=== PATIENT | male | born 1970 | race Caucasian/White ===

== ENCOUNTER → 2020-10-15 | Outpatient (CLI) | payer OTHER ==
[~2020-10-15] MED LIST: CEPH500 PO; HYDACE5 PO; HYDGUAL120 PO; IBUP800 PO; PERM5TC TOP; SULTRIDS PO
[2020-10-16 16:22] LABS: CORONAVIRUS (COVID19) CSH-NRL Negative (Negative)
== END ==
LOC: LAB 10:00
PROVIDERS: Physician Assistant Medical
DX: Z20.828 Contact with and (suspected) exposure to other viral communicable diseases (principal)
CPT/HCPCS: U0003

== ENCOUNTER 2021-05-05 15:06 | Emergency (ER) | payer OTHER ==
[~2021-05-05] VITALS: Ht 182.9 cm; Wt 117.9 kg
[~2021-05-05 15:06] MED LIST changes: -CEPH500 PO
[2021-05-05] MEDS ORDERED: CEPH500 PO (17:42)
== END 2021-05-05 17:55 | disposition home or self-care (01) ==
LOC: ER 15:06
DX: L03.115 Cellulitis of right lower limb (principal)
CPT/HCPCS: 73590; 93971; 99284-25

== ENCOUNTER 2021-10-07 21:28 | Inpatient (IN) | payer OTHER ==
[~2021-10-07] VITALS: Ht 190.5 cm; Wt 127.0 kg
[~2021-10-07 21:28] MED LIST changes: +CEPH500 PO
[2021-10-07 22:26] LABS: BASOPHILS ABSOLUTE AUTO 0.01 K/mm3 (0.00-0.23); BASOPHILS PERCENT AUTO 0 % (0-2); EOSINOPHILS PERCENT AUTO 0 % (0-6); Hematocrit 48.8 % (37.0-53.0); Hemoglobin 17.9 g/dL (13.5-17.5); IMMATURE GRAN ABSOLUTE AUTO 0.01 K/mm3 (0.00-0.10); IMMATURE GRAN PERCENT AUTO 0 % (0-1); LYMPHOCYTES ABSOLUTE AUTO 0.81 K/mm3 (0.84-5.20); LYMPHOCYTES PERCENT AUTO 20 % (21-46); MONOCYTES ABSOLUTE AUTO 0.48 K/mm3 (0.16-1.47); MONOCYTES PERCENT AUTO 12 % (4-13); Mean Corpuscular HGB 32.5 pg (26.0-34.0); Mean Corpuscular HGB Conc 36.7 g/dL (31.5-36.5); Mean Corpuscular Volume 89 fL (80-100); Mean Platelet Volume 11.4 fL (9.1-12.4); NEUTROPHILS ABSOLUTE AUTO 2.68 K/mm3 (1.96-9.15); NEUTROPHILS PERCENT AUTO 67 % (41-73); Platelet Count 62 K/mm3 (150-400); RDW Coefficient Variation 12.2 % (11.7-14.2); RDW Standard Deviation 40.6 fL (35.1-46.3); White Blood Cell Count 3.99 K/mm3 (4.00-11.30)
[2021-10-07 22:46] LABS: Alanine Aminotransfer (ALT/SGP 233 U/L (12-78); Albumin, Blood 3.5 g/dL (3.4-5.0); Albumin/Globulin Ratio 0.9 (0.8-1.8); Alk Phos 114 U/L (50-136); Anion Gap 9 mmol/L (6-16); Aspartate Aminotrans (AST/SGOT 336 U/L (12-37); Bilirubin, Total 1.9 mg/dL (0.1-1.0); Blood Urea Nitrogen 9 mg/dL (8-24); C-REACTIVE PROTEIN, EXT RANGE <0.290 mg/dL (0.000-0.300); CO2, Blood 26 mmol/L (21-32); Calcium, Blood 8.6 mg/dL (8.5-10.1); Chloride, Blood 98 mmol/L (98-108); Creatinine, Blood 0.75 mg/dL (0.60-1.20); Glomerular Filtration Rate >60 (60-); Glucose, Blood 110 mg/dL (70-99); Sodium, Blood 133 mmol/L (136-145); Total Protein, Blood 7.5 g/dL (6.4-8.2); Troponin I <0.015 ng/mL (0.000-0.040)
[2021-10-07 23:02] LABS: Magnesium, Blood 1.8 mg/dL (1.6-2.4)
[2021-10-07 23:29] LABS: Acetaminophen, Random <2.0 ug/mL (10.0-30.0)
[2021-10-08 11:09] LABS: BASOPHILS PERCENT AUTO 0 % (0-2); EOSINOPHILS PERCENT AUTO 0 % (0-6); Hematocrit 47.3 % (37.0-53.0); Hemoglobin 17.6 g/dL (13.5-17.5); Mean Corpuscular HGB 33.1 pg (26.0-34.0); Mean Corpuscular HGB Conc 37.2 g/dL (31.5-36.5); Mean Corpuscular Volume 89 fL (80-100); Mean Platelet Volume 11.4 fL (9.1-12.4); Platelet Count 71 K/mm3 (150-400); RDW Coefficient Variation 12.3 % (11.7-14.2); RDW Standard Deviation 40.2 fL (35.1-46.3); Red Blood Cell Count 5.32 M/mm3 (4.30-5.90); White Blood Cell Count 2.62 K/mm3 (4.00-11.30)
[2021-10-08 11:14] LABS: IMMATURE GRAN ABSOLUTE AUTO 0.01 K/mm3 (0.00-0.10); IMMATURE GRAN PERCENT AUTO 0 % (0-1); LYMPHOCYTES ABSOLUTE AUTO 0.45 K/mm3 (0.84-5.20); LYMPHOCYTES PERCENT AUTO 17 % (21-46); MONOCYTES ABSOLUTE AUTO 0.31 K/mm3 (0.16-1.47); MONOCYTES PERCENT AUTO 12 % (4-13); NEUTROPHILS ABSOLUTE AUTO 1.85 K/mm3 (1.96-9.15); NEUTROPHILS PERCENT AUTO 71 % (41-73)
[2021-10-08 11:28] LABS: Alanine Aminotransfer (ALT/SGP 201 U/L (12-78); Albumin, Blood 3.2 g/dL (3.4-5.0); Albumin/Globulin Ratio 0.8 (0.8-1.8); Alk Phos 109 U/L (50-136); Anion Gap 10 mmol/L (6-16); Aspartate Aminotrans (AST/SGOT 243 U/L (12-37); Bilirubin, Total 1.9 mg/dL (0.1-1.0); Blood Urea Nitrogen 13 mg/dL (8-24); Bun/Creatinine Ratio 18.6 (12.0-20.0); CO2, Blood 25 mmol/L (21-32); Calcium, Blood 8.8 mg/dL (8.5-10.1); Chloride, Blood 100 mmol/L (98-108); Globulin, Blood 4.1 g/dL (2.2-4.0); Glomerular Filtration Rate >60 (60-); Glucose, Blood 138 mg/dL (70-99); Potassium, Blood 3.5 mmol/L (3.5-5.5); Sodium, Blood 135 mmol/L (136-145); Total Protein, Blood 7.3 g/dL (6.4-8.2)
--- NOTE | 2021-10-08 13:51 | NUR ---
ASSUMED CARE OF PATIENT UPON HIS ARRIVAL FROM ED AT 1338. TRANSFERRED FROM [facility] TO BED WITH SBA. ON 8 L/MIN NC O2, BEING SWITCHED OVER TO AIRVO NOW. LUNGS ARE CLEAR, BUT HE IS TEJEDA AND TACHYPNEIC. NO COUGH OBSERVED. A&O X 3, PLEASANT. GIVEN URINAL. EDUCATED NOT TO GET OOB WITHOUT ASSISTANCE D/T SOB; VERBALLY AGREED. DIET CHANGED TO MECH SOFT PT HAS NO TEETH.
--- NOTE | 2021-10-08 17:58 | NUR ---
SHIFT SUMMARY: PT REMAINS ON AIRVO 40 L/MIN 55% FIO2 AND CONTINUOUS OXIMETRY, WHICH SHOWS O2 SAT 90-94% AT REST. TAKES A FEW MINUTES TO RECOVER AFTER ACTIVITY. AMBULATED TO BR WITH ASSIST, BECAME DYSPNEIC AND HAD SOME ANXIETY. NO EVENTS ON TELEMETRY, SR 60'S. CIWA SCORE 3; STATED LAST DRINK WAS SUNDAY 10/07 AT 1600. TOLERATING PO INTAKE.
--- NOTE | 2021-10-09 05:53 | NUR ---
SHIFT SUMMARY PT IS ON AIRVO 4OL @ 55% SATTING 93%. DISCUSSED WITH HIM USING THE BEDSIDE COMMODE TO MAINTAIN SAFETY AND PREVENT THE AIRVO FROM UNPLUGGING. HE AGREED THAT WOULD BE SAFEST AND AGREED TO CALL BEFORE HE GOT UP. RECIEVED SOME TESSALON PEARLS FOR A COUGH AND HAS RESTED COMFORTABLY THE REST OF THE NIGHT. WILL CONTINEU TO MONITOR.
--- NOTE | 2021-10-09 11:52 | NUR ---
Patient is sitting up in bed and alert. Patient tells me about his COVID tracing and the SOB he is experiencing currently. He shares about his struggle with alcoholism and how this hospitalization maybe just what he needs to break that cycle and its hold on him. He speaks of his fears with the virus, his departure from his [employer] and his desires to live healthier. I encourage self-care, reinforce helpful attitudes and practices and provide therapeutic listening, pastoral newspaper delivery counselor and prayer. Patient responds well and shows signs of catharsis and increased peace. I will continue to remain available to patient and family.
--- NOTE | 2021-10-09 17:09 | NUR ---
SHIFT SUMMARY: NO ACUTE EVENTS. AIRVO @ 40 L/MIN/55% FIO2, SATS 88-94% DEPENDING ON ACTIVITY. NO EVENTS ON TELE, SR 70'S. DENIES PAIN. USING BSC AND URINAL. APPETITE IS OK, DOESN'T LIKE TEXTURE OF MECH SOFT/GRD MEAT DIET BUT HAS NO TEETH. CIWA SCORES HAVE BEEN < 8; PT STATED HE HAS BEEN WEANING HIMSELF OF ALCOHOL AT HOME PRIOR TO ADMISSION. STILL HAVING TEJEDA AND ANXIETY, BUT IS ABLE TO BREATHE THROUGH IT.
--- NOTE | 2021-10-10 05:14 | NUR ---
TEE TOLERATED AIRVO AT 40L 50% OVERNIGHT. ONLY TIME HE WOULD DESAT WAS WHEN HE REMOVED TO BLOW NOSE OR ROLLED OVER IN HIS SLEEP AND IT WOULD COME OFF. NOT PANICKY LAST NIGHT HE HAD BEEN THE PREVIOUS DAY WHEN HE WOULD HAVE BRIEF DROPS IN . HE WOULD BREATH THROUGH IT AND GO BACK TO SLEEP. SWEATING PROFUSELY, HIS TELE PATCHES KEPT NEEDING REPLACED. THEN AROUND 0430, HE HAD LOST THE DRESSING OVER HIS IV, AND THE CATHETER CAME OUT WITH IT. PATIENT ASSURED THIS RN THAT HE SWEATS LIKE THIS EVERY NIGHT, AND TO PLEASE LEAVE HIM ALONE SO HE COULD GET SOME SLEEP. TELE: SB-SR 50'S-60'S. 02 SATURATIONS 89-97% ON AIRVO. (WOULD ONLY DROP INTO MID 80'S WHEN OFF BEFORE REPLACEMENT)
[2021-10-10 06:00] LABS: Hematocrit 49.7 % (37.0-53.0); Hemoglobin 17.7 g/dL (13.5-17.5); Mean Corpuscular HGB 32.7 pg (26.0-34.0); Mean Corpuscular HGB Conc 35.6 g/dL (31.5-36.5); Mean Corpuscular Volume 92 fL (80-100); Platelet Count 116 K/mm3 (150-400); RDW Coefficient Variation 12.1 % (11.7-14.2); Red Blood Cell Count 5.42 M/mm3 (4.30-5.90); White Blood Cell Count 11.36 K/mm3 (4.00-11.30)
[2021-10-10 07:07] LABS: Anion Gap 9 mmol/L (6-16); Blood Urea Nitrogen 19 mg/dL (8-24); Bun/Creatinine Ratio 23.9 (12.0-20.0); CO2, Blood 30 mmol/L (21-32); Calcium, Blood 9.2 mg/dL (8.5-10.1); Chloride, Blood 98 mmol/L (98-108); Creatinine, Blood 0.79 mg/dL (0.60-1.20); Glomerular Filtration Rate >60 (60-); Glucose, Blood 119 mg/dL (70-99); Potassium, Blood 3.4 mmol/L (3.5-5.5); Sodium, Blood 137 mmol/L (136-145)
--- NOTE | 2021-10-10 08:32 | NUR ---
pt laying in bed watching tv, he states he's feeling better today, he feels his breathing is ok, a/ox3, cooperative with care, follows commands well, denies pain at this time, reports one episode of coughing with some sputum, otherwise not coughing, lungs are clear in upper [place], dim in bases, adeline left base, possibly an occ faint wheeze, is currently on airvo at 40liters, and 50%, resp even and unlabored at this time, hrr, tele was discontinued this am, was running sr, no edema noted, ppp+2, cap refill<3sec, vs stable, afebrile, btx4, abd flat soft nontender, voids without diff, skin c/w/d, margo recio, call light in reach. he doesn't feel like he is begining etoh w/d yet, but states this is day four, very slight tremor noted, denies any h/a or other symptoms and states he is aware of what to look for and will call if anything changes. call light in reach.
--- NOTE | 2021-10-10 12:47 | NUR ---
NURSE WENT TO REPLACE IV SO HIS DOSE OF REMDESIVER COULD BE GIVEN AT NOON, PT BECAME VERY UPSET AND WAS YELLING AND STATES HE TOLD THEM IN THE ED NOT TO GIVE THAT TO HIM. CHARGE NURSE WENT IN AND SPOKE WITH HIM, HE YELLED AT HER WELL, SHE WAS ABLE TO CALM HIM, AND REMOVED IT FROM THE EMAR. ASKED HIM TO ASK WHEN MEDS ARE BEING GIVEN IF THE NURSE DOESN'T TELL YOU WHAT IT IS, HE'S VERY UPSET HE WAS GIVEN TWO DOSES. CALL LIGHT IN REACH.
--- NOTE | 2021-10-10 18:31 | NUR ---
PT HAS BEEN CALM THE REST OF THE DAY, TOOK A SHOWER WHEN HIS CAME IN. HE TOLERATED IT WELL. SATS HAVE BEEN IN THE MID 90'S ALL DAY, NO FURTHER CHANGES THIS SHIFT. CALL LIGHT IN REACH.
--- NOTE | 2021-10-11 05:52 | NUR ---
BJ DID WELL LAST NIGHT GETTING UP TO BEDSIDE COMMODE HIMSELF, AND WORKING ON RELAXING WHEN HIS BREATHING RATES INCREASE AND HE GETS SOB. HE IS ALERT AND ORIENTED, STILL REFUSING A NEW IV OR ANY FURTHER DOSES OF REMDESVIR.
[2021-10-11 06:16] LABS: Albumin, Blood 2.9 g/dL (3.4-5.0); Anion Gap 10 mmol/L (6-16); Blood Urea Nitrogen 17 mg/dL (8-24); Bun/Creatinine Ratio 23.1 (12.0-20.0); CO2, Blood 22 mmol/L (21-32); Calcium, Blood 8.8 mg/dL (8.5-10.1); Chloride, Blood 104 mmol/L (98-108); Creatinine, Blood 0.74 mg/dL (0.60-1.20); Glomerular Filtration Rate >60 (60-); Glucose, Blood 109 mg/dL (70-99); Magnesium, Blood 2.1 mg/dL (1.6-2.4); Phosphorus, Blood 4.1 mg/dL (2.5-4.9); Potassium, Blood 4.3 mmol/L (3.5-5.5); Sodium, Blood 136 mmol/L (136-145)
--- NOTE | 2021-10-11 17:14 | NUR ---
SHIFT SUMMARY PATIENT ALERT AND ORIENTED THIS SHIFT. PATIENT SITTING UP IN BED WATCHING TELEVISION THROUGHOUT THIS SHIFT. PATIENT REMAINS ON AIRVO 40L @ 50%, O2 IN THE LOW 90s. PATIENT DENIES OTHER NEEDS THROUGHOUT THIS SHIFT. PATIENT'S IN THE ROOM VISITING THROUGHOUT THIS AFTERNOON.
--- NOTE | 2021-10-12 05:48 | NUR ---
SHIFT SUMMARY; AOX3, INDEPENDENT TO BSC/URINAL. LS DIMINISHED BUT CLEAR, OCCATIONALLY THERE ARE SOME CRACKLES BUT HE IS ABLE TO COUGH AND CLEAR. PRODUCTIVE COUGH YELLOW SMALL AMOUNTS. AIR VO 35L / 49% O2. TOLERATING IT WELL. SATS ON CONTINUOUS PULSE OX AVERAGE 90-91%. DENIED ANY NEEDS OR CONCERNS THIS SHIFT. VS WNL, AFEBRILE. NO PAIN. CALL LIGHT IN REACH.
--- NOTE | 2021-10-12 09:00 | NUR ---
pt just got back to bed from the bathroom, he reports he had a bm, he is pretty out of breath, a/ox3, cooperative with care, follows commands well, denies pain, or any needs, lungs are clear t/o, reports he is brining up yellow phlem, currently on airvo, hrr, no edema noted, ppp+2, cap refill<3sec, vs stable, afebrile, btx4, abd flat soft notender, voids clear lebron urine via urinal, skin c/w/d, maew, margo, call light in reach.
--- NOTE | 2021-10-12 18:15 | NUR ---
pt had an uneventful day today, recovers after a few minutes of activity. came to see him, no acute changes or needs. call light in reach.
--- NOTE | 2021-10-13 04:45 | NUR ---
PATIENT IS ALERT AND ORIENTED. INDEPENDENT IN ROOM. REMAINS ON 35L O2 VIA AIRVO. NO COMPLAINTS OF PAIN OR DISCOMFORT. NO ACUTE CHANGES TO REPORT OF AT THIS TIME. CALL LIGHT WITHIN REACH.
--- NOTE | 2021-10-13 09:33 | NUR ---
pt up to br indep, he does remove his 02 to ambulate in the br, states he handles it fine, he states he slept well, no real change, is having a productive cough now, hrr, no edema, no complaints of pain, call light in reach, able to make needs known.
--- NOTE | 2021-10-13 18:22 | NUR ---
in room with pt. he is doing ok, denies complaints. no acute changes this shift. call light in reach.
[2021-10-14 05:05] LABS: Hematocrit 48.7 % (37.0-53.0); Hemoglobin 17.3 g/dL (13.5-17.5); Mean Corpuscular HGB Conc 35.5 g/dL (31.5-36.5); Mean Corpuscular Volume 93 fL (80-100); Mean Platelet Volume 12.2 fL (9.1-12.4); Platelet Count 159 K/mm3 (150-400); RDW Coefficient Variation 12.2 % (11.7-14.2); Red Blood Cell Count 5.25 M/mm3 (4.30-5.90); White Blood Cell Count 13.05 K/mm3 (4.00-11.30)
[2021-10-14 07:02] LABS: Anion Gap 9 mmol/L (6-16); Blood Urea Nitrogen 14 mg/dL (8-24); Bun/Creatinine Ratio 17.1 (12.0-20.0); CO2, Blood 25 mmol/L (21-32); Calcium, Blood 9.1 mg/dL (8.5-10.1); Chloride, Blood 102 mmol/L (98-108); Creatinine, Blood 0.82 mg/dL (0.60-1.20); Glomerular Filtration Rate >60 (60-); Glucose, Blood 108 mg/dL (70-99); Potassium, Blood 4.7 mmol/L (3.5-5.5); Sodium, Blood 136 mmol/L (136-145)
--- NOTE | 2021-10-14 15:15 | NUR ---
Patient discusses how rough it has been going through his DT process and sees having COVID and getting to be in the hospital while recovering is a blessing. 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 I listen empathically and provide anxiety containment and prayer. Patient is clearly moved by the prayer and voices such. I will continue to remain available to assist patient further in the emotional/spiritual aspects of recovery.
--- NOTE | 2021-10-14 16:46 | NUR ---
SHIFT SUMMARY PATIENT IS ALERT AND ORIENTED, PLEASANT AND COOPERATIVE WITH CARE. PATIENT IS ON 35LPM @ 49% ON AIRVOW. PATIENT HAS BEEN SATTING @ 88-92% PATIENT COMPLAINED OF HEART BURN THIS SHIFT. DOCTOR WAS NOTIFIED. NO ACUTE CHANGES THIS SHIFT. THE PATIENT IS IN BED RESTING. USES URINAL AT BEDSIDE. CALL LIGHT WITHIN REACH. THIS NURSE WILL CONTINUE TO MONITOR PATIENT UNTIL SHIFT REPORT IS GIVEN TO ONCOMING NURSE.
--- NOTE | 2021-10-15 05:38 | NUR ---
WASTE TRANSPORTATION TECHNICIAN SUMMARY PATIENT WAS ALERT AND ORIENTED X4, DENIED ANY PAIN BUT STATED HE COUGH UP SO MUCUS. PATIENT IS ON AIRVO 35L 49% SATING BETWEEN 82-92%. PATIENT REFUSED EVENING MEDS (SOFT SOFTENER). PATIENT SLEPT THROUGH THE NIGHT WITHOUT PATRICIA ACUTE CHANGES, VITAL SIGN WHERE STABLE.
--- NOTE | 2021-10-15 12:51 | NUR ---
Patient is sitting on EOB and is struggling to breath until he begins breathing slowly through his nose and out through his mouth. Patient tells me about how frustrated he is with how long his recovery is taking, how trapped he feels being in one rm for so many days and how lonely it is being in isolation. We discuss his concerns over his 's exemption form and the wording she should use. I encourage self-care, and provide therapeutic listening, companionship and prayer. Patient responds well and shows signs of an elevated mood. I will continue to remain available to patient and family.
--- NOTE | 2021-10-15 13:41 | NUR ---
PATIENT CALLED THIS NURSE INTO THE ROOM. PATIENT REQUESTED THAT HIS DIET ORDER BE CHANGED FROM MECHANICAL SOFT TO REGULAR. HE STATES THAT HE WAS PLACED ON A MECHANICAL SOFT DIET BECAUSE OF DIFFICULTY EATING AND WORK OF BREATHING. THIS NURSE CALLED DR. NI WHO ORDERED SPEECH THERAPY EVALUATE PATIENT AND UPGRADE IF APPROPRIATE. THIS NURSE NOTIFIED THE PATIENT AND HE IS EXTREMELY UPSET AND STATED THAT HE'S "STARVING" BECAUSE HE CANNOT EAT "THAT MECHANICAL MEAT." THIS NURSE APOLOGIZED BUT PATIENT CONTINUES TO BE AGGITATED. BED IN LOW POSITION, CALL LIGHT WITHIN REACH.
--- NOTE | 2021-10-15 18:02 | NUR ---
SHIFT SUMMARY PT AXO, IRRITABLE AND AGGITATED THIS SHIFT. IRRTABLE WITH MORNING ASSESSMENT, THOUGH VSS. ON 45L VIA AIRVO AT 60% PER RT. SATING 84- 94%. SEE NOTE ABOUT PATIENT'S REQUEST TO CHANGE DIET ORDER. SPOUSE PRESENT IN ROOM AT THIS TIME. BED IN LOW POSITION, CALL LIGHT WITHIN REACH. PT DESATS WITH ANY EXERTION.
[2021-10-16 05:38] LABS: BASOPHILS ABSOLUTE AUTO 0.03 K/mm3 (0.00-0.23); BASOPHILS PERCENT AUTO 0 % (0-2); EOSINOPHILS ABSOLUTE AUTO 0.15 K/mm3 (0.00-0.68); EOSINOPHILS PERCENT AUTO 1 % (0-6); Hematocrit 50.9 % (37.0-53.0); Hemoglobin 18.2 g/dL (13.5-17.5); IMMATURE GRAN ABSOLUTE AUTO 0.27 K/mm3 (0.00-0.10); IMMATURE GRAN PERCENT AUTO 2 % (0-1); LYMPHOCYTES ABSOLUTE AUTO 0.54 K/mm3 (0.84-5.20); LYMPHOCYTES PERCENT AUTO 4 % (21-46); MONOCYTES ABSOLUTE AUTO 1.23 K/mm3 (0.16-1.47); MONOCYTES PERCENT AUTO 8 % (4-13); Mean Corpuscular HGB Conc 35.8 g/dL (31.5-36.5); Mean Corpuscular Volume 92 fL (80-100); Mean Platelet Volume 11.5 fL (9.1-12.4); NEUTROPHILS ABSOLUTE AUTO 12.39 K/mm3 (1.96-9.15); NEUTROPHILS PERCENT AUTO 85 % (41-73); Platelet Count 233 K/mm3 (150-400); RDW Coefficient Variation 12.2 % (11.7-14.2); Red Blood Cell Count 5.51 M/mm3 (4.30-5.90); White Blood Cell Count 14.61 K/mm3 (4.00-11.30)
[2021-10-16 06:46] LABS: Albumin, Blood 2.8 g/dL (3.4-5.0); Anion Gap 12 mmol/L (6-16); Blood Urea Nitrogen 19 mg/dL (8-24); Bun/Creatinine Ratio 22.1 (12.0-20.0); CO2, Blood 25 mmol/L (21-32); Calcium, Blood 9.5 mg/dL (8.5-10.1); Chloride, Blood 98 mmol/L (98-108); Creatinine, Blood 0.86 mg/dL (0.60-1.20); Glomerular Filtration Rate >60 (60-); Glucose, Blood 94 mg/dL (70-99); Potassium, Blood 5.3 mmol/L (3.5-5.5); Sodium, Blood 135 mmol/L (136-145)
--- NOTE | 2021-10-16 07:13 | NUR ---
no changes overnight for Joshua. He remains on AIRVO at 45L and 50%, and desats quite easily with very minimal exertion. last night, he did refuse his HS medications. (famotidine and joann colace). getting frustrated with his situation, Joshua can be gruff with staff at times
[2021-10-16 13:43] LABS: Albumin, Blood 2.8 g/dL (3.4-5.0); Albumin/Globulin Ratio 0.7 (0.8-1.8); Bilirubin, Direct 0.8 mg/dL (0.0-0.3); Bilirubin, Indirect 0.9 mg/dL (0.1-0.7); Bilirubin, Total 1.7 mg/dL (0.1-1.0); Globulin, Blood 4.2 g/dL (2.2-4.0)
--- NOTE | 2021-10-16 15:03 | NUR ---
Patient talks about how grateful he is for simple things like being able to breath and a good BM. Patient also gets emotional as he talks about some relational tensions. I provide conflict resolution suggestions and prayer. Patient responds well and admits to feeling greater sense of direction and a deeper connection to God. I will continue to remain available to patient and family.
--- NOTE | 2021-10-16 18:53 | NUR ---
PT A/O X4. NO SIGNS OF ACUTE DISTRESS. NO COMPLAINTS OF PAIN. PT ON AIRVO AT 45L. DESAT TO 86-90 % DURING ACTIVITY. PT USES COMMODE. REFUSES PEPCID. PROVIDER NOTIFIED. REPORT GIVEN TO NIGHT NURSE.
--- NOTE | 2021-10-17 05:24 | NUR ---
SHIFT SUMMARY PATIENT ALERT AND ORIENTED. HAD NO COMPLAINTS OF PAIN OR SHORTNESS OF BREATH. NO ACUTE ISSUES NOTED OVERNIGHT. CONTINUES ON AIRVO MONITORED BY RT. CALL LIGHT WITHIN REACH. REPORT GIVEN TO ONCOMING RN.
[2021-10-17 06:25] LABS: Albumin, Blood 2.5 g/dL (3.4-5.0); Anion Gap 9 mmol/L (6-16); Blood Urea Nitrogen 21 mg/dL (8-24); Bun/Creatinine Ratio 31.1 (12.0-20.0); CO2, Blood 24 mmol/L (21-32); Calcium, Blood 9.1 mg/dL (8.5-10.1); Chloride, Blood 98 mmol/L (98-108); Creatinine, Blood 0.68 mg/dL (0.60-1.20); Glomerular Filtration Rate >60 (60-); Glucose, Blood 124 mg/dL (70-99); Potassium, Blood 4.5 mmol/L (3.5-5.5); Sodium, Blood 131 mmol/L (136-145)
[2021-10-17 06:55] LABS: BASOPHILS ABSOLUTE AUTO 0.03 K/mm3 (0.00-0.23); BASOPHILS PERCENT AUTO 0 % (0-2); EOSINOPHILS ABSOLUTE AUTO 0.06 K/mm3 (0.00-0.68); EOSINOPHILS PERCENT AUTO 0 % (0-6); Hematocrit 47.6 % (37.0-53.0); Hemoglobin 17.2 g/dL (13.5-17.5); IMMATURE GRAN ABSOLUTE AUTO 0.28 K/mm3 (0.00-0.10); IMMATURE GRAN PERCENT AUTO 2 % (0-1); LYMPHOCYTES ABSOLUTE AUTO 0.74 K/mm3 (0.84-5.20); LYMPHOCYTES PERCENT AUTO 5 % (21-46); MONOCYTES ABSOLUTE AUTO 1.02 K/mm3 (0.16-1.47); MONOCYTES PERCENT AUTO 6 % (4-13); Mean Corpuscular HGB 33.1 pg (26.0-34.0); Mean Corpuscular HGB Conc 36.1 g/dL (31.5-36.5); Mean Corpuscular Volume 92 fL (80-100); Mean Platelet Volume 11.9 fL (9.1-12.4); NEUTROPHILS ABSOLUTE AUTO 14.06 K/mm3 (1.96-9.15); NEUTROPHILS PERCENT AUTO 87 % (41-73); Platelet Count 237 K/mm3 (150-400); RDW Coefficient Variation 12.1 % (11.7-14.2); RDW Standard Deviation 41.1 fL (35.1-46.3); White Blood Cell Count 16.19 K/mm3 (4.00-11.30)
--- NOTE | 2021-10-17 08:00 | NUR ---
pt sitting up in a chair working on breakfast, sats are in the low 90's but desats with any movement on airvo, he is a/ox3, pleasant and cooperative with care, follows commands well, denies pain, lungs are pretty clear t/o except to rul is dim, has a productive cough of yellow sputum, hrr, no edema noted, ppp+2, cap refill <3sec, vs stable, afebrile, btx4, abd flat soft nontender, voids without diff, skin c/w/d, maew, margo, call light in reach.
--- NOTE | 2021-10-18 05:01 | NUR ---
PT WAS A/O X4, STABLE VITALS, NO ACUTE CHANGES DURING THE SHIFT, PT COMPAINED OF STRAINING WHEN HAVING A BOWEL MOVEMENT AND REQUESTED HIS SCHEDULED STOOL SOFTNERS. PT IS AWARE OF NEW DIAGNOSIS OF MOLD SPORES IN LUNGS AND IS RCEIVING VFEND TREATMENT. EF30-35%, AIRVO 45L 49%.
[2021-10-18 05:10] LABS: BASOPHILS ABSOLUTE AUTO 0.02 K/mm3 (0.00-0.23); BASOPHILS PERCENT AUTO 0 % (0-2); EOSINOPHILS ABSOLUTE AUTO 0.01 K/mm3 (0.00-0.68); EOSINOPHILS PERCENT AUTO 0 % (0-6); Hemoglobin 16.8 g/dL (13.5-17.5); IMMATURE GRAN PERCENT AUTO 1 % (0-1); LYMPHOCYTES ABSOLUTE AUTO 0.81 K/mm3 (0.84-5.20); LYMPHOCYTES PERCENT AUTO 4 % (21-46); MONOCYTES ABSOLUTE AUTO 1.07 K/mm3 (0.16-1.47); MONOCYTES PERCENT AUTO 5 % (4-13); Mean Corpuscular HGB 33.3 pg (26.0-34.0); Mean Corpuscular HGB Conc 36.5 g/dL (31.5-36.5); Mean Corpuscular Volume 91 fL (80-100); Mean Platelet Volume 11.1 fL (9.1-12.4); NEUTROPHILS ABSOLUTE AUTO 18.34 K/mm3 (1.96-9.15); NEUTROPHILS PERCENT AUTO 90 % (41-73); Platelet Count 264 K/mm3 (150-400); RDW Coefficient Variation 12.1 % (11.7-14.2); RDW Standard Deviation 40.6 fL (35.1-46.3); Red Blood Cell Count 5.04 M/mm3 (4.30-5.90); White Blood Cell Count 20.45 K/mm3 (4.00-11.30)
[2021-10-18 05:53] LABS: Alanine Aminotransfer (ALT/SGP 124 U/L (12-78); Albumin, Blood 2.5 g/dL (3.4-5.0); Albumin/Globulin Ratio 0.7 (0.8-1.8); Alk Phos 126 U/L (50-136); Anion Gap 10 mmol/L (6-16); Aspartate Aminotrans (AST/SGOT 66 U/L (12-37); Bilirubin, Direct 0.6 mg/dL (0.0-0.3); Bilirubin, Indirect 0.8 mg/dL (0.1-0.7); Bilirubin, Total 1.4 mg/dL (0.1-1.0); Blood Urea Nitrogen 19 mg/dL (8-24); CO2, Blood 24 mmol/L (21-32); Calcium, Blood 8.7 mg/dL (8.5-10.1); Chloride, Blood 99 mmol/L (98-108); Globulin, Blood 3.7 g/dL (2.2-4.0); Glomerular Filtration Rate >60 (60-); Glucose, Blood 134 mg/dL (70-99); Phosphorus, Blood 3.8 mg/dL (2.5-4.9); Potassium, Blood 4.9 mmol/L (3.5-5.5); Sodium, Blood 133 mmol/L (136-145); Total Protein, Blood 6.2 g/dL (6.4-8.2)
--- NOTE | 2021-10-18 17:07 | NUR ---
SHIFT SUMMARY PATIENT IS ALERT AND ORIENTATED X4. PATIENT HAS BEEN ON AIRVO 35L 49 FIO2 ALL SHIFT. PATIENT DESATS WITH ACTIVITY. PATIENT HAS COMPLAINED OF CONSTIPATION. MEDICATION ORDERS FOR CONSTIPATION WERE OBTAINED FROM PATIENT HAS HAD NO COMPLAINTS OF PAIN, NAUSEA, VOMITTING, OR SOB. PATIENT HAS RESTED IN CHAIR MOST OF SHIFT. VISITED DURING VISITING HRS. VITAL SIGNS REVIEWED. NO ACUTE EVENTS THIS SHIFT. WILL MONITOR UNTIL SHIFT CHANGE.
[2021-10-19 05:13] LABS: BASOPHILS ABSOLUTE AUTO 0.05 K/mm3 (0.00-0.23); BASOPHILS PERCENT AUTO 0 % (0-2); EOSINOPHILS PERCENT AUTO 0 % (0-6); Hematocrit 48.7 % (37.0-53.0); Hemoglobin 17.6 g/dL (13.5-17.5); IMMATURE GRAN ABSOLUTE AUTO 0.26 K/mm3 (0.00-0.10); IMMATURE GRAN PERCENT AUTO 1 % (0-1); LYMPHOCYTES ABSOLUTE AUTO 0.98 K/mm3 (0.84-5.20); LYMPHOCYTES PERCENT AUTO 4 % (21-46); MONOCYTES ABSOLUTE AUTO 1.09 K/mm3 (0.16-1.47); MONOCYTES PERCENT AUTO 5 % (4-13); Mean Corpuscular HGB 33.5 pg (26.0-34.0); Mean Corpuscular HGB Conc 36.1 g/dL (31.5-36.5); Mean Corpuscular Volume 93 fL (80-100); Mean Platelet Volume 11.1 fL (9.1-12.4); NEUTROPHILS PERCENT AUTO 90 % (41-73); Platelet Count 268 K/mm3 (150-400); RDW Coefficient Variation 12.2 % (11.7-14.2); RDW Standard Deviation 41.6 fL (35.1-46.3); Red Blood Cell Count 5.25 M/mm3 (4.30-5.90); White Blood Cell Count 23.48 K/mm3 (4.00-11.30)
[2021-10-19 06:08] LABS: Alanine Aminotransfer (ALT/SGP 143 U/L (12-78); Albumin, Blood 2.8 g/dL (3.4-5.0); Albumin/Globulin Ratio 0.7 (0.8-1.8); Alk Phos 144 U/L (50-136); Anion Gap 9 mmol/L (6-16); Aspartate Aminotrans (AST/SGOT 70 U/L (12-37); Bilirubin, Total 1.3 mg/dL (0.1-1.0); Blood Urea Nitrogen 18 mg/dL (8-24); Bun/Creatinine Ratio 22.9 (12.0-20.0); CO2, Blood 29 mmol/L (21-32); Chloride, Blood 97 mmol/L (98-108); Creatinine, Blood 0.79 mg/dL (0.60-1.20); Glomerular Filtration Rate >60 (60-); Glucose, Blood 136 mg/dL (70-99); Potassium, Blood 5.1 mmol/L (3.5-5.5); Sodium, Blood 135 mmol/L (136-145); Total Protein, Blood 6.8 g/dL (6.4-8.2)
--- NOTE | 2021-10-19 06:24 | NUR ---
SHIFT SUMMARY PT IS A 50 Y/O MALE, ADMITTED FOR PNA R/T COVID-19. HE IS A&O X 4, INDEPENDENT IN THE ROOM, CURRENTLY ON ENHANCED PRECAUTIONS. PT IS CURRENTLY ON AIRVO AT 35L @ 40% FIO2. PT DESATS DOWN TO THE 70S WITH ANY EXERTION OR COUGHING SPELLS. VITAL SIGNS OTHERWISE STABLE. NO C/O ACUTE PAIN OR NAUSEA. NO OTHER ACUTE CHANGES IN PT CONDITION NOTED DURING THE NIGHT. WILL CONTINUE TO MONITOR AND TREAT PER EMAR UNTIL HAND OFF TO DAY SHIFT RN.
--- NOTE | 2021-10-19 19:24 | NUR ---
PT A/O X4. PT AMBULATES WELL IN ROOM. NO CHANGES NOTED FOR SHIFT. PT IS ON AIRVO, DESAT 89-96% WITH ACTIVITY. REOPORT GIVEN TO [facility] SHIFT
[2021-10-20 04:43] LABS: BASOPHILS ABSOLUTE AUTO 0.05 K/mm3 (0.00-0.23); BASOPHILS PERCENT AUTO 0 % (0-2); EOSINOPHILS PERCENT AUTO 0 % (0-6); Hematocrit 45.6 % (37.0-53.0); Hemoglobin 16.3 g/dL (13.5-17.5); IMMATURE GRAN ABSOLUTE AUTO 0.27 K/mm3 (0.00-0.10); IMMATURE GRAN PERCENT AUTO 1 % (0-1); LYMPHOCYTES ABSOLUTE AUTO 1.06 K/mm3 (0.84-5.20); LYMPHOCYTES PERCENT AUTO 4 % (21-46); MONOCYTES ABSOLUTE AUTO 1.16 K/mm3 (0.16-1.47); MONOCYTES PERCENT AUTO 5 % (4-13); Mean Corpuscular HGB 33.3 pg (26.0-34.0); Mean Corpuscular HGB Conc 35.7 g/dL (31.5-36.5); Mean Corpuscular Volume 93 fL (80-100); NEUTROPHILS ABSOLUTE AUTO 22.77 K/mm3 (1.96-9.15); NEUTROPHILS PERCENT AUTO 90 % (41-73); Platelet Count 261 K/mm3 (150-400); RDW Coefficient Variation 12.1 % (11.7-14.2); RDW Standard Deviation 41.8 fL (35.1-46.3); Red Blood Cell Count 4.89 M/mm3 (4.30-5.90); White Blood Cell Count 25.31 K/mm3 (4.00-11.30)
[2021-10-20 05:06] LABS: Alanine Aminotransfer (ALT/SGP 146 U/L (12-78); Albumin, Blood 2.5 g/dL (3.4-5.0); Albumin/Globulin Ratio 0.7 (0.8-1.8); Alk Phos 143 U/L (50-136); Anion Gap 7 mmol/L (6-16); Aspartate Aminotrans (AST/SGOT 73 U/L (12-37); Bilirubin, Direct 0.5 mg/dL (0.0-0.3); Bilirubin, Indirect 0.3 mg/dL (0.1-0.7); Bilirubin, Total 0.8 mg/dL (0.1-1.0); Blood Urea Nitrogen 17 mg/dL (8-24); Bun/Creatinine Ratio 24.3 (12.0-20.0); CO2, Blood 29 mmol/L (21-32); Calcium, Blood 8.5 mg/dL (8.5-10.1); Chloride, Blood 97 mmol/L (98-108); Globulin, Blood 3.7 g/dL (2.2-4.0); Glomerular Filtration Rate >60 (60-); Glucose, Blood 170 mg/dL (70-99); Phosphorus, Blood 2.4 mg/dL (2.5-4.9); Potassium, Blood 4.8 mmol/L (3.5-5.5); Sodium, Blood 133 mmol/L (136-145); Total Protein, Blood 6.2 g/dL (6.4-8.2)
--- NOTE | 2021-10-20 05:59 | NUR ---
pATIENT IS A&O X4. HE AMBULATES INDEPENDENTLY. PATIENT IS ON AIRVO @45% SATTING 84-98%. PATIENT EASILY DESATS WITH ACTIVITY,
--- NOTE | 2021-10-20 18:54 | NUR ---
SHIFT SUMMARY PT AAOX4, ABLE TO MAKE NEEDS KNOWN, PLEASANT AND COOPERATIVE TO CARE. NO C/O PAIN OR ANY DISCOMFORT THIS SHIFT. DENIES CP OR N/V/D. PT REMAINS ON AIRVO AT 45% SATTING 96% AT REST. PT NOTED TO DESAT WITH ACTIVITY TO 82%. CALLS APPROPRIATELY FOR ASSISTANCE. BED AT LOWEST POSITION. CALL LIGHT WITHIN REACH.
--- NOTE | 2021-10-21 05:15 | NUR ---
PATIENT HAS BEEN INDEPENDENT IN HIS ROOM. A&o X4. PATIENT STILL DESATS WITH ACTIVITY. SATS RANGED FROM 86-94%. VERABLIZED NO QUESTIONS OR COMMENTS. PATIENTS O2 NEED WILL NEED WILL HAVE TO DECREASE IN ORDER TO DC.
[2021-10-21 05:20] LABS: BASOPHILS ABSOLUTE AUTO 0.04 K/mm3 (0.00-0.23); BASOPHILS PERCENT AUTO 0 % (0-2); EOSINOPHILS PERCENT AUTO 0 % (0-6); Hematocrit 45.4 % (37.0-53.0); Hemoglobin 16.1 g/dL (13.5-17.5); IMMATURE GRAN ABSOLUTE AUTO 0.22 K/mm3 (0.00-0.10); IMMATURE GRAN PERCENT AUTO 1 % (0-1); LYMPHOCYTES ABSOLUTE AUTO 0.65 K/mm3 (0.84-5.20); LYMPHOCYTES PERCENT AUTO 3 % (21-46); MONOCYTES ABSOLUTE AUTO 0.93 K/mm3 (0.16-1.47); MONOCYTES PERCENT AUTO 4 % (4-13); Mean Corpuscular HGB Conc 35.5 g/dL (31.5-36.5); Mean Corpuscular Volume 93 fL (80-100); Mean Platelet Volume 10.6 fL (9.1-12.4); NEUTROPHILS ABSOLUTE AUTO 20.43 K/mm3 (1.96-9.15); NEUTROPHILS PERCENT AUTO 92 % (41-73); Platelet Count 222 K/mm3 (150-400); RDW Coefficient Variation 12.1 % (11.7-14.2); RDW Standard Deviation 41.9 fL (35.1-46.3); Red Blood Cell Count 4.88 M/mm3 (4.30-5.90); White Blood Cell Count 22.27 K/mm3 (4.00-11.30)
[2021-10-21 05:57] LABS: Albumin, Blood 2.4 g/dL (3.4-5.0); Anion Gap 7 mmol/L (6-16); Blood Urea Nitrogen 17 mg/dL (8-24); Bun/Creatinine Ratio 22.1 (12.0-20.0); CO2, Blood 29 mmol/L (21-32); Chloride, Blood 99 mmol/L (98-108); Creatinine, Blood 0.77 mg/dL (0.60-1.20); Glomerular Filtration Rate >60 (60-); Glucose, Blood 156 mg/dL (70-99); Phosphorus, Blood 2.6 mg/dL (2.5-4.9); Sodium, Blood 135 mmol/L (136-145)
--- NOTE | 2021-10-21 17:50 | NUR ---
SHIFT SUMMARY NO ACUTE CHANGES NOTED TO PT THIS SHIFT. PT AAOX4, ABLE TO MAKE NEEDS KNOWN, PLEASANT AND COOPERATIVE TO CARE. NO C/O PAIN THIS SHIFT. PT ON AIRVO AT 45L AND 60% FIO2, PT SATTING AT 95-97% AT REST, PT DESATS WITH MINIMAL ACTIVITY DOWN TO 85%. BED AT LOWEST POSITION. CALL LIGHT WITHIN REACH.
--- NOTE | 2021-10-21 22:17 | NUR ---
Joshua's temp improved to 98.3 at 2200
[2021-10-22 05:39] LABS: BASOPHILS ABSOLUTE AUTO 0.03 K/mm3 (0.00-0.23); BASOPHILS PERCENT AUTO 0 % (0-2); EOSINOPHILS PERCENT AUTO 0 % (0-6); Hematocrit 43.9 % (37.0-53.0); Hemoglobin 15.5 g/dL (13.5-17.5); IMMATURE GRAN ABSOLUTE AUTO 0.29 K/mm3 (0.00-0.10); IMMATURE GRAN PERCENT AUTO 1 % (0-1); LYMPHOCYTES PERCENT AUTO 3 % (21-46); MONOCYTES ABSOLUTE AUTO 1.29 K/mm3 (0.16-1.47); MONOCYTES PERCENT AUTO 6 % (4-13); Mean Corpuscular HGB 32.6 pg (26.0-34.0); Mean Corpuscular HGB Conc 35.3 g/dL (31.5-36.5); Mean Corpuscular Volume 92 fL (80-100); Mean Platelet Volume 10.9 fL (9.1-12.4); NEUTROPHILS ABSOLUTE AUTO 18.29 K/mm3 (1.96-9.15); NEUTROPHILS PERCENT AUTO 89 % (41-73); Platelet Count 209 K/mm3 (150-400); RDW Coefficient Variation 12.2 % (11.7-14.2); RDW Standard Deviation 41.1 fL (35.1-46.3); Red Blood Cell Count 4.76 M/mm3 (4.30-5.90)
--- NOTE | 2021-10-22 17:03 | NUR ---
SHIFT SUMMARY NO ACUTE CHANGES NOTED TO PT THIS SHIFT. PT AAOX4, ABLE TO MAKE NEEDS KNOWN, PLEASANT AND COOPERATIVE TO CARE. NO C/O PAIN OR ANY DISCOMFORT THIS SHIFT. NO C/O CP OR N/V/D. PT REMAINS ON AIRVO AT 45L O2 AND 60% FIO2 PER RT. PT SATTING 95% AT REST, NOTED TO DESAT DOWN TO 84% WITH MINIMAL ACTIVITY. PT IS INDEPENDENT IN THE ROOM AND CALLS APPROPRIATELY FOR ASSISTANCE. CALL LIGHT WITHIN REACH.
--- NOTE | 2021-10-23 04:45 | NUR ---
TEE IS STILL ON 45/60 HFNC SPO2 IN THE 90'S AT REST. IN THE LOW 80'S WITH EXERTION. VITALS REMAINS STABLE NO MAJOR CHANGES
[2021-10-23 05:02] LABS: BASOPHILS ABSOLUTE AUTO 0.05 K/mm3 (0.00-0.23); BASOPHILS PERCENT AUTO 0 % (0-2); EOSINOPHILS ABSOLUTE AUTO 0.01 K/mm3 (0.00-0.68); EOSINOPHILS PERCENT AUTO 0 % (0-6); Hematocrit 44.6 % (37.0-53.0); Hemoglobin 15.8 g/dL (13.5-17.5); IMMATURE GRAN ABSOLUTE AUTO 0.41 K/mm3 (0.00-0.10); IMMATURE GRAN PERCENT AUTO 2 % (0-1); LYMPHOCYTES ABSOLUTE AUTO 0.57 K/mm3 (0.84-5.20); LYMPHOCYTES PERCENT AUTO 3 % (21-46); MONOCYTES ABSOLUTE AUTO 0.85 K/mm3 (0.16-1.47); MONOCYTES PERCENT AUTO 5 % (4-13); Mean Corpuscular HGB Conc 35.4 g/dL (31.5-36.5); Mean Corpuscular Volume 93 fL (80-100); Mean Platelet Volume 10.8 fL (9.1-12.4); NEUTROPHILS ABSOLUTE AUTO 17.19 K/mm3 (1.96-9.15); NEUTROPHILS PERCENT AUTO 90 % (41-73); Platelet Count 196 K/mm3 (150-400); RDW Coefficient Variation 12.1 % (11.7-14.2); RDW Standard Deviation 42.2 fL (35.1-46.3); Red Blood Cell Count 4.79 M/mm3 (4.30-5.90); White Blood Cell Count 19.08 K/mm3 (4.00-11.30)
[2021-10-23 06:36] LABS: Albumin, Blood 2.4 g/dL (3.4-5.0); Anion Gap 9 mmol/L (6-16); Blood Urea Nitrogen 16 mg/dL (8-24); Bun/Creatinine Ratio 21.4 (12.0-20.0); CO2, Blood 27 mmol/L (21-32); Calcium, Blood 8.4 mg/dL (8.5-10.1); Chloride, Blood 99 mmol/L (98-108); Creatinine, Blood 0.75 mg/dL (0.60-1.20); Glomerular Filtration Rate >60 (60-); Glucose, Blood 207 mg/dL (70-99); Phosphorus, Blood 2.5 mg/dL (2.5-4.9); Potassium, Blood 4.5 mmol/L (3.5-5.5); Sodium, Blood 135 mmol/L (136-145)
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
--- NOTE | 2021-10-23 17:16 | NUR ---
SHIFT SUMMARY PT AAOX4, ABLE TO MAKE NEEDS KNOWN, PLEASANT AND COOPERATIVE TO CARE. NO C/O PAIN OR ANY DISCOMFORT THIS SHIFT. DENIES CP OR N/V/D. PT REMAINS ON AIRVO AT 40L AND 60 FIO2 PER RT, SATTING 93-95% AT REST, CONTINUES TO DESAT WITH MINIMAL EXERTION. NO ACUTE CHANGES NOTED TO PT THIS SHIFT. BED AT LOWEST POSITION. CALL LIGHT WITHIN REACH.
--- NOTE | 2021-10-23 20:49 | NUR ---
ASSUMED CARE. AOX3, COMPLIANT W/ CARE. INDEPENDENT IN ROOM FOR SHORT DISTANCE AND SHORT PERIODS OF TIME. DYSPENIC W/ EXERTION. MILD ACTIVITY INTOLERANCE. AVERAGE SATS 91-92%. WITH ACTIVITY CAN DESAT TO LOW 80'S. RECOVERY IS USUALLY WITH IN A MINUTE. OCCATIONALLY WILL NEED ADDITIONAL 15L NR. LS CLEAR WITH MODERATE AIR EXCHANGE. ENCOURAGE DEEP BREATHING EXERCISES. VS WNL. WILL CONTINUE TO MONITOR. CALL LIGHT IN REACH.
[2021-10-24 05:19] LABS: BASOPHILS ABSOLUTE AUTO 0.04 K/mm3 (0.00-0.23); BASOPHILS PERCENT AUTO 0 % (0-2); EOSINOPHILS ABSOLUTE AUTO 0.01 K/mm3 (0.00-0.68); EOSINOPHILS PERCENT AUTO 0 % (0-6); Hematocrit 44.9 % (37.0-53.0); IMMATURE GRAN ABSOLUTE AUTO 0.36 K/mm3 (0.00-0.10); IMMATURE GRAN PERCENT AUTO 2 % (0-1); LYMPHOCYTES ABSOLUTE AUTO 0.54 K/mm3 (0.84-5.20); LYMPHOCYTES PERCENT AUTO 3 % (21-46); MONOCYTES ABSOLUTE AUTO 0.78 K/mm3 (0.16-1.47); MONOCYTES PERCENT AUTO 4 % (4-13); Mean Corpuscular HGB 33.2 pg (26.0-34.0); Mean Corpuscular HGB Conc 35.6 g/dL (31.5-36.5); Mean Corpuscular Volume 93 fL (80-100); Mean Platelet Volume 10.7 fL (9.1-12.4); NEUTROPHILS ABSOLUTE AUTO 17.41 K/mm3 (1.96-9.15); NEUTROPHILS PERCENT AUTO 91 % (41-73); Platelet Count 190 K/mm3 (150-400); RDW Coefficient Variation 12.1 % (11.7-14.2); RDW Standard Deviation 42.1 fL (35.1-46.3); Red Blood Cell Count 4.82 M/mm3 (4.30-5.90); White Blood Cell Count 19.14 K/mm3 (4.00-11.30)
--- NOTE | 2021-10-24 05:46 | NUR ---
SHIFT SUMMARY: VS WNL, AFEBRILE. AIRVO CONTINUES ON 45L 60% FIO2. CONTINUES TO BE DYSPENIC WITH EXERTION. WITH SHORT DISTANCE OR ACTIVITY RECOVERY IS LESS THEN A MIN. ANYTHING LONG HE REQUIRES ADDITIONAL 15L NR FOR HIM TO RECOVER IN LESS THAN 5 MINUTES. LS ARE CLEAR BUT WITH MODERATE AIR MOVEMENT. DISCUSSED IN LENGTH DISEASE PROCESS, EXERCISES. ABLE TO BE INDEPENDENT FOR THE MOST PART. ABLE TO MAKE NEEDS KNOWN. CALL LIGHT REMAINS IN REACH.
--- NOTE | 2021-10-24 18:10 | NUR ---
PT IS A/OX3, PLEASANT AND COOPERATIVE. THE PT IS UP IND IN HIS ROOM. THE PT IS ON AIR-VO 40/55 TODAY MAINTANING O2 SAT'S IN THE HIGH 90%'S AT REST. THE PT DESAT'S WITH MINIMAL ACTIVITY INTO THE LOW 80%'S, HOWEVER, RECOVERS FAIRLY QIUCKLY. THE PT DENIED ANY PAIN T/O THE SHIFT. CALL LIGHT IN REACH WILL CONTINUE TO MONITOR AND ASSESS FOR CHANGES
--- NOTE | 2021-10-25 04:54 | NUR ---
PT A/O X4; PLEASANT AND COOPERATIVE WITH CARE. HE IS IND IN THE ROOM. CURRENTLY ON VIA AIRVO. SATS IN THE 90'S AT REST AND WILL DESAT INTO THE LOW 80'S WITH ACTIVITY. PT REPORTS DYSPNEA AND HAVING ISSUES "TAKING IN A FULL BREATHE". VSS. WILL REPORT TO DAY SHIFT RN.
[2021-10-25 05:09] LABS: HIV AB/P24 AG SCREEN Non Reactive (Non Reactive)
[2021-10-25 05:15] LABS: BASOPHILS ABSOLUTE AUTO 0.05 K/mm3 (0.00-0.23); BASOPHILS PERCENT AUTO 0 % (0-2); EOSINOPHILS ABSOLUTE AUTO 0.02 K/mm3 (0.00-0.68); EOSINOPHILS PERCENT AUTO 0 % (0-6); Hematocrit 44.5 % (37.0-53.0); Hemoglobin 15.9 g/dL (13.5-17.5); IMMATURE GRAN PERCENT AUTO 2 % (0-1); LYMPHOCYTES PERCENT AUTO 3 % (21-46); MONOCYTES ABSOLUTE AUTO 0.71 K/mm3 (0.16-1.47); MONOCYTES PERCENT AUTO 4 % (4-13); Mean Corpuscular HGB 32.9 pg (26.0-34.0); Mean Corpuscular HGB Conc 35.7 g/dL (31.5-36.5); Mean Corpuscular Volume 92 fL (80-100); Mean Platelet Volume 10.7 fL (9.1-12.4); NEUTROPHILS ABSOLUTE AUTO 16.55 K/mm3 (1.96-9.15); NEUTROPHILS PERCENT AUTO 90 % (41-73); Platelet Count 176 K/mm3 (150-400); RDW Coefficient Variation 12.1 % (11.7-14.2); RDW Standard Deviation 41.5 fL (35.1-46.3); Red Blood Cell Count 4.84 M/mm3 (4.30-5.90); White Blood Cell Count 18.33 K/mm3 (4.00-11.30)
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
--- NOTE | 2021-10-25 17:24 | NUR ---
SHIFT SUMMARY: PT A/O IND IN ROOM TO BSC. PT WAS TITRATED BY RT TO AIRVO 45/56. SATS ARE 96%. PT HAD NO ACUTE CHANGES THIS SHIFT. HE IS PLEASANT AND COOPERATIVE. HAD 2 LARGE BM'S. NO CONCERNS AT THIS TIME. MELATONIN ORDERED FOR HIS C/O INSOMNIA LAST NIGHT.
--- NOTE | 2021-10-26 04:35 | NUR ---
SHIFT SUMMARY PT A/O X4 AND IND IN THE ROOM. PT CURRENTLY ON AIRVO AT 45/45. PT HAS BEEN SATTING IN THE LOW TO MID 90'S. PT DESATS WITH ACTIVITY. MELATONIN GIVEN TO HELP WITH SLEEP SINCE HE HAS NOT BEEN SLEEPING WELL SINCE BEING IN THE HOSPITAL. VSS. WILL REPORT TO DAY RN.
--- NOTE | 2021-10-26 16:17 | NUR ---
SHIFT SUMMARY PT IS A&O, SITTING IN CHAIR AT BS MOST OF SHIFT, WATCHING TV. USES URINAL AND UP TO BSC INDEPENDENTLY. PT REMAINED ON AIRVO WITH SETTING UNCHANGED, PER RT; BIOX REMAINED >96% ALL DAY. LUNGS T/O ONLY SLIGHTLY COARSE IN THE BASES. DR SORTO IN TO SEE PT TODAY. COUGH SYRUP ORDERED PER PT REQUEST. TOOK A NAP AFTER LUNCH. DENIED FURTHER NEEDS. CALL LT IN REACH.
--- NOTE | 2021-10-27 05:58 | NUR ---
SHIFT SUMMARY PATIENT ALERT AND ORIENTED. HAD NO COMPLAINTS OF PAIN. GETS SHORT OF BREATH UPON EXERTION. PATIENT CONTINUES ON AIRVO MONITORED BY RT. NO ACUTE ISSUES NOTED OVERNIGHT. CALL LIGHT WITHIN REACH. REPORT GIVEN TO ONCOMING RN.
--- NOTE | 2021-10-27 17:16 | NUR ---
SHIFT SUMMARY PT UP TO CHAIR AT START OF SHIFT. REMAINS IN CHAIR AT BS ALL DAY, MOSTLY WATCHING TV. IRRITABLE WITH SOME STAFF AND RT AT START OF SHIFT, AFTER TALKING WITH HIS . PT LATER APPOLOGIZED. REPORTED THAT HIS WOULD NOT BE COMING IN TODAY. PT STATED THAT HE HAD WANTED TO TAKE A SHOWER TODAY AND THAT HIS USUALLY HELPS HIM, BUT SHE WOULDN'T BE COMING TODAY. BED LINENS CHANGED. BIOX CONTINUES TO IMPROVE; STAYING BETWEEN 96-99%. RT NOTIFIED, BUT PT BEING IRRITABLE AND REFUSING THIS AM. DR SORTO NOTIFIED. PT INFORMED OF PROCESS AND TRYING TO GET HIM WELL AND D/C'D HOME. PT THEN AGREED. AIRVO DECREASED AND PT'S BIOX HAS REMAINED >95%. PT IS INDEPENDENT TO BSC FOR BM'S. USES URINALS INDEPENDENTLY. NO C/O PAIN. DENIES FURTHER NEEDS. CALL LT IN REACH. REACH.
[2021-10-28 05:11] LABS: BASOPHILS ABSOLUTE AUTO 0.09 K/mm3 (0.00-0.23); BASOPHILS PERCENT AUTO 0 % (0-2); EOSINOPHILS ABSOLUTE AUTO 0.03 K/mm3 (0.00-0.68); EOSINOPHILS PERCENT AUTO 0 % (0-6); Hematocrit 48.3 % (37.0-53.0); Hemoglobin 17.1 g/dL (13.5-17.5); IMMATURE GRAN ABSOLUTE AUTO 0.78 K/mm3 (0.00-0.10); IMMATURE GRAN PERCENT AUTO 4 % (0-1); LYMPHOCYTES ABSOLUTE AUTO 0.89 K/mm3 (0.84-5.20); LYMPHOCYTES PERCENT AUTO 4 % (21-46); MONOCYTES ABSOLUTE AUTO 1.16 K/mm3 (0.16-1.47); MONOCYTES PERCENT AUTO 6 % (4-13); Mean Corpuscular HGB 32.9 pg (26.0-34.0); Mean Corpuscular HGB Conc 35.4 g/dL (31.5-36.5); Mean Corpuscular Volume 93 fL (80-100); Mean Platelet Volume 10.6 fL (9.1-12.4); NEUTROPHILS ABSOLUTE AUTO 17.28 K/mm3 (1.96-9.15); NEUTROPHILS PERCENT AUTO 86 % (41-73); Platelet Count 146 K/mm3 (150-400); RDW Coefficient Variation 12.1 % (11.7-14.2); RDW Standard Deviation 42.2 fL (35.1-46.3); White Blood Cell Count 20.23 K/mm3 (4.00-11.30)
[2021-10-28 05:55] LABS: Anion Gap 10 mmol/L (6-16); Blood Urea Nitrogen 19 mg/dL (8-24); Bun/Creatinine Ratio 22.9 (12.0-20.0); CO2, Blood 28 mmol/L (21-32); Calcium, Blood 8.7 mg/dL (8.5-10.1); Chloride, Blood 99 mmol/L (98-108); Creatinine, Blood 0.83 mg/dL (0.60-1.20); Glomerular Filtration Rate >60 (60-); Glucose, Blood 122 mg/dL (70-99); Potassium, Blood 4.4 mmol/L (3.5-5.5); Sodium, Blood 137 mmol/L (136-145)
--- NOTE | 2021-10-28 05:58 | NUR ---
SHIFT SUMMARY PATIENT ALERT AND ORIENTED. HAD NO COMPLAINTS OF PAIN. DYSPNIC ON EXERTION. PATIENT CHANGED FROM AIRVO TO HIGH FLOW NASAL CANULA BY RT, CURRENTLY ON 8 LITERS O2. NO ACUTE EVENTS NOTED OVERNIGHT. CALL LIGHT WITHIN REACH. REPORT GIVEN TO ONCOMING RN.
--- NOTE | 2021-10-28 15:38 | NUR ---
Patient tells me that he is thankful for the experience of having COVID and that he continues to grow as a person. 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 I rejoice with patient and provide a prayer of blessing and thanks. Patient responds well and expresses appreciation for the time and care.
--- NOTE | 2021-10-28 17:45 | NUR ---
SHIFT SUMMARY PT HAS BEEN AGREEABLE WITH CARE TODAY AND HAS BEEN AMBULATING AROUND HIS ROOM. HE IS HOPEFUL TO DISCHARGE TOMORROW. STILL SATTING 94% ON 8L NASAL CANNULA. WILL CONTINUE TO MONITOR.
--- NOTE | 2021-10-29 04:20 | NUR ---
SUMMARY NO NEW ISSUES NOTED. PT EAGER TO GO HOME. PT HAS BEEN PLESANT AND COOPERATIVE. PT SLEPT SOME THIS SHIFT. PT CURRENTLY AWAKE AND IN NO DISTRESS. CALL LIGHT IN REACH.
--- NOTE | 2021-10-29 18:47 | NUR ---
SHIFT SUMMARY PATIENT AAOX4. GETS UP AND AMBULATES WITH NO ASSISTANCE AROUND ROOM. WHEN HE AMBULATES OR GOES TO THE RESTROOM HIS SATS DROP. HE HAS DROPPED LOW 85% TODAY AND THEN BACK TO 90-92% RIGHT AFTER SITTING DOWN. HE HAS SIT AT 90-93% THE ENTIRE DAY. NO C/O PAIN, N/V, OR DISCOMFORT VOICED. DOES GET SOB ON EXERTION. VSS. NAD NOTED. WILL CONTINUE TO MONITOR IN CARE. PLANS TO DC HOME ON TOMORROW AND IS LOOKING FORWARD TO IT....
--- NOTE | 2021-10-30 05:53 | NUR ---
SHIFT SUMMARY ASSUMED CARE AT 1900. PT REMAINS ON SUPPLEMENTAL OXYGEN, ON 6L HUMIDIFIED HIGH FLOW NC; REMAINS ON CONTINUOUS PULSE OXIMETRY, DESATING WITH ACTIVITY. SCHEDULED MEDICATIONS DURING SHIFT ADMINISTERED. PT ABLE TO VOICE HIS NEEDS, PT DENIED PAIN. PT VOICED CONCERNS ABOUT HAVING A DOSE OF VORICONAZOLE 200MG THIS MORNING, HE STATED THAT HE THOUGHT THE COURSE WAS COMPLETED BECAUSE HE WOULD BE DISCHARGED. HE VOICED FRUSTRATION THAT HE WOULD NOT BE ABLE TO BE DISCHARGED UNLESS HE HAD COMPLETED THIS MEDICATION. PER PROGRESS NOTE, PT HAD 4 MORE DOSES BUT IT ALSO STATED THAT THE PT MAY POSSIBLY BE DISCHARGED TODAY. PT CALMED DOWN AND VERBALIZED HIS UNDERSTANDING. WILL CONTINUE TO MONITOR.
[2021-10-30 06:13] LABS: BASOPHILS ABSOLUTE AUTO 0.14 K/mm3 (0.00-0.23); BASOPHILS PERCENT AUTO 1 % (0-2); EOSINOPHILS ABSOLUTE AUTO 0.11 K/mm3 (0.00-0.68); EOSINOPHILS PERCENT AUTO 1 % (0-6); Hematocrit 48.6 % (37.0-53.0); Hemoglobin 17.2 g/dL (13.5-17.5); IMMATURE GRAN ABSOLUTE AUTO 1.03 K/mm3 (0.00-0.10); IMMATURE GRAN PERCENT AUTO 5 % (0-1); LYMPHOCYTES ABSOLUTE AUTO 0.74 K/mm3 (0.84-5.20); LYMPHOCYTES PERCENT AUTO 3 % (21-46); MONOCYTES ABSOLUTE AUTO 1.31 K/mm3 (0.16-1.47); MONOCYTES PERCENT AUTO 6 % (4-13); Mean Corpuscular HGB 33.3 pg (26.0-34.0); Mean Corpuscular HGB Conc 35.4 g/dL (31.5-36.5); Mean Corpuscular Volume 94 fL (80-100); Mean Platelet Volume 10.7 fL (9.1-12.4); NEUTROPHILS ABSOLUTE AUTO 18.67 K/mm3 (1.96-9.15); NEUTROPHILS PERCENT AUTO 85 % (41-73); Platelet Count 144 K/mm3 (150-400); RDW Coefficient Variation 12.4 % (11.7-14.2); Red Blood Cell Count 5.17 M/mm3 (4.30-5.90)
[2021-10-30 07:35] LABS: Anion Gap 11 mmol/L (6-16); Blood Urea Nitrogen 21 mg/dL (8-24); CO2, Blood 25 mmol/L (21-32); Calcium, Blood 8.4 mg/dL (8.5-10.1); Chloride, Blood 99 mmol/L (98-108); Creatinine, Blood 0.78 mg/dL (0.60-1.20); Glomerular Filtration Rate >60 (60-); Glucose, Blood 120 mg/dL (70-99); Potassium, Blood 4.4 mmol/L (3.5-5.5); Sodium, Blood 135 mmol/L (136-145)
[2021-10-30] MEDS ORDERED: ALBU90OI INH (12:12)
[2021-10-30] MEDS ORDERED: ALMACONE SUSPE355 ML PO (12:13)
[2021-10-30] MEDS ORDERED: DEXA2 (12:15)
[2021-10-30] MEDS ORDERED: DOCUZEN 8.6-501 EACH PO (12:16)
[2021-10-30] MEDS ORDERED: GUAI600T33 PO (12:17)
[2021-10-30] MEDS ORDERED: MELATONIN5 M1 PO (12:17)
[2021-10-30] MEDS ORDERED: OMEP20ER PO (12:25)
[2021-10-30] MEDS ORDERED: THERA-D2000 UNIT PO (12:26)
[2021-10-30] MEDS ORDERED: VORI200 PO (12:27)
--- NOTE | 2021-10-30 18:07 | NUR ---
DISCHARGE HOME NOTE PATIENT AAOX4. VERY ANXIOS TO GO HOME AND HAS BEEN WAITING AND AGRAVATTED ALL DAY. APPEARS TO BE IRRATABLE AND WAS TALKING ABOUT LEAVING WITHOUT O2 TANK IF NOT SOON. COMPANY DID DELIVER PORTABLE O2 TANK TO BEDSIDE AND CONFIRMED HOME ADDRESS TO MEET AND DROP OFF HOME EQUIPMENT. WENT OVER AND DISCUSSED DISCHARGE PAPERS, EXPLAINED MEDS DOSE AND SCHEDULE AND FU APPOINMENTS AND QUESTIONS ANSWERED. GAVE TEACHING EDUCATION ON O2, PNEUMONIA AND WAYS TO RELAX AND BREATH IF FEELS SOB. WENT OVER RELAXATION TECHNIQUES. ESCORTED OFF FLOOR PER MICROPALEONTOLOGIST, VIA WHEELCHAIR AND TO PERSONAL VEHICHLE RELEASED TO CARE.
== END 2021-10-30 17:32 | disposition home or self-care (01) | DRG 177 ==
LOC: ER 21:28 → ERHOLD 23:19 → MEDS 23:19
PROVIDERS: Family Medicine; Internal Medicine; Internal Medicine Infectious Disease; Physician Assistant; ADMIT Internal Medicine
PROC: 8E0ZXY6 Isolation (ICD-10-PCS; principal; 2021-10-07)
PROC: 3E0333Z Introduction of Anti-inflammatory into Peripheral Vein, Percutaneous Approach (ICD-10-PCS; 2021-10-07)
PROC: XW033E5 Introduction of Remdesivir Anti-infective into Peripheral Vein, Percutaneous Approach, New Technology Group 5 (ICD-10-PCS; 2021-10-08)
PROC: XW0DXM6 Introduction of Baricitinib into Mouth and Pharynx, External Approach, New Technology Group 6 (ICD-10-PCS; 2021-10-16)
PROC: 5A0955A Assistance with Respiratory Ventilation, Greater than 96 Consecutive Hours, High Flow/Velocity Cannula (ICD-10-PCS; 2021-10-17)
DX: U07.1 COVID-19 (principal); B44.0 Invasive pulmonary aspergillosis; J12.82 Pneumonia due to coronavirus disease 2019; J80 Acute respiratory distress syndrome; E87.1 Hypo-osmolality and hyponatremia; J93.9 Pneumothorax, unspecified; D84.9 Immunodeficiency, unspecified; D69.6 Thrombocytopenia, unspecified; J98.2 Interstitial emphysema; K70.30 Alcoholic cirrhosis of liver without ascites; F10.20 Alcohol dependence, uncomplicated; E87.6 Hypokalemia; K52.9 Noninfective gastroenteritis and colitis, unspecified; Z98.890 Other specified postprocedural states; Z87.891 Personal history of nicotine dependence; B18.2 Chronic viral hepatitis C; Z79.899 Other long term (current) drug therapy; D72.828 Other elevated white blood cell count; T38.0X5A Adverse effect of glucocorticoids and synthetic analogues, initial encounter
CPT/HCPCS: 36415; 71045; 76705; 80048; 80053; 80069; 80076; 82248; 83735; 84100; 84145; 84484; 85025; 85027; 85379; 86140; 87070; 87102; 87106; 87205; 87305; 87389; 88108; 88312; 92610; 93005; 93010; 94760; 94761; 94762; 96372; 96374; 96375; 99285-25; A9270; C9399; G0480; J1100; J1650; J7050

== ENCOUNTER 2022-04-09 13:44 | Emergency (ER) | payer OTHER ==
[~2022-04-09] VITALS: Ht 190.5 cm; Wt 113.4 kg
[~2022-04-09 13:44] MED LIST changes: +ALBU90OI INH; +ALMACONE SUSPE355 ML PO; +DEXA2; +DOCUZEN 8.6-501 EACH PO; +GUAI600T33 PO; +MELATONIN5 M1 PO; +OMEP20ER PO; +THERA-D2000 UNIT PO; +VORI200 PO
[2022-04-09 15:48] LABS: Influenza A, PCR NEGATIVE (NEGATIVE); Influenza B, PCR NEGATIVE (NEGATIVE); Resp Syncytial Virus, PCR NEGATIVE (NEGATIVE); SARS-Cov-2 (COVID-19) PCR, MMC NEGATIVE (NEGATIVE)
[2022-04-09 16:09] LABS: BASOPHILS ABSOLUTE AUTO 0.08 K/mm3 (0.00-0.23); BASOPHILS PERCENT AUTO 1 % (0-2); EOSINOPHILS ABSOLUTE AUTO 0.01 K/mm3 (0.00-0.68); EOSINOPHILS PERCENT AUTO 0 % (0-6); Hematocrit 46.3 % (37.0-53.0); Hemoglobin 16.7 g/dL (13.5-17.5); IMMATURE GRAN ABSOLUTE AUTO 0.22 K/mm3 (0.00-0.10); IMMATURE GRAN PERCENT AUTO 1 % (0-1); LYMPHOCYTES ABSOLUTE AUTO 1.33 K/mm3 (0.84-5.20); LYMPHOCYTES PERCENT AUTO 8 % (21-46); MONOCYTES ABSOLUTE AUTO 1.42 K/mm3 (0.16-1.47); MONOCYTES PERCENT AUTO 9 % (4-13); Mean Corpuscular HGB 32.2 pg (26.0-34.0); Mean Corpuscular HGB Conc 36.1 g/dL (31.5-36.5); Mean Corpuscular Volume 89 fL (80-100); Mean Platelet Volume 10.9 fL (9.1-12.4); NEUTROPHILS ABSOLUTE AUTO 13.24 K/mm3 (1.96-9.15); NEUTROPHILS PERCENT AUTO 81 % (41-73); Platelet Count 143 K/mm3 (150-400); RDW Coefficient Variation 12.6 % (11.7-14.2); RDW Standard Deviation 41.8 fL (35.1-46.3); Red Blood Cell Count 5.19 M/mm3 (4.30-5.90)
[2022-04-09 16:25] LABS: Albumin, Blood 3.4 g/dL (3.4-5.0); Albumin/Globulin Ratio 0.9 (0.8-1.8); Bilirubin, Direct 0.9 mg/dL (0.0-0.3); Bilirubin, Indirect 1.3 mg/dL (0.1-0.7); Bilirubin, Total 2.2 mg/dL (0.1-1.0); Bun/Creatinine Ratio 24.3 (12.0-20.0); Calcium, Blood 9.3 mg/dL (8.5-10.1); Creatinine, Blood 0.9 mg/dL (0.60-1.20); Globulin, Blood 3.8 g/dL (2.2-4.0); Magnesium, Blood 2.6 mg/dL (1.6-2.4); Potassium, Blood 4.3 mmol/L (3.5-5.5); Total Protein, Blood 7.2 g/dL (6.4-8.2)
[2022-04-09 17:30] LABS: Source, Urine Clean Catch
[2022-04-09 17:35] LABS: Appearance, Urine Clear (Clear); Blood, Urine Neg (Neg); Color, Urine Amber (P-Yellow); Glucose Qualitative, Urine Neg (Neg); Ketones, Urine 2+ (Neg); Leukocyte Esterase, Urine 1+ (Neg); Nitrite, Urine Pos (Neg); Protein, Urine 2+ (Neg); Urobilinogen, Urine 2+ (Normal)
[2022-04-09 18:03] LABS: Bilirubin, Urine 1+ (Neg)
[2022-04-09 18:04] LABS: Bacteria Many /hpf; Hyaline Casts 0-2 /lpf (0-2); Mucus Heavy (0-Heavy)
[2022-04-09 18:05] LABS: Amorphous Light (0-Heavy); Red Blood Cells, Urine Not Seen /hpf (0-2); Squamous Epithelial Cells Not Seen /hpf (Few); White Blood Cells, Urine 0-2 /hpf (0-5)
[2022-04-09] MEDS ORDERED: ONDA4ODT MM (19:07)
[2022-04-09] MEDS ORDERED: CEFD300 PO (19:07)
[2022-04-10] MEDS ORDERED: VALA500 PO (12:35)
== END 2022-04-09 19:20 | disposition home or self-care (01) ==
LOC: ER 13:44
PROVIDERS: Physician Assistant; Student in an Organized Health Care Education/Training Program
DX: N39.0 Urinary tract infection, site not specified (principal); E86.0 Dehydration; K21.9 Gastro-esophageal reflux disease without esophagitis; Z20.822 Contact with and (suspected) exposure to COVID-19; Z79.899 Other long term (current) drug therapy
CPT/HCPCS: 0241U; 36415; 71045; 73110; 80048; 80076; 81001; 83605; 83690; 83735; 84145; 85025; 93005; 93010; 96374; 96375; 99284-25; J0696; J1885; J2765; J7120

== ENCOUNTER → 2023-09-15 | Outpatient (CLI) | payer OTHER ==
[~2023-09-15] MED LIST changes: +CEFD300 PO; +ONDA4ODT MM; +VALA500 PO
[2023-09-15 13:53] LABS: U Amphetamine Screen Not Detected; U Barbituate Screen Not Detected; U Benzodiazapine Screen Not Detected; U Buprenorphine Screen Not Detected; U Cannabinoids Screen DETECTED; U Cocaine Screen Not Detected; U Methadone Screen Not Detected; U Methamphetamine Screen Not Detected; U Opiates Screen Not Detected; U Oxycodone Screen Not Detected; U Phencyclidine Screen Not Detected; U Propoxyphene Screen Not Detected
== END | disposition home or self-care (01) ==
LOC: LAB SHORT 11:45 → LAB 11:45
PROVIDERS: Physician Assistant Medical
DX: B18.2 Chronic viral hepatitis C (principal)

== ENCOUNTER → 2024-05-12 | Outpatient (CLI) | payer SELFPAY ==
[2024-05-12 14:16] LABS: BASOPHILS ABSOLUTE AUTO 0.05 K/mm3 (0.00-0.23); BASOPHILS PERCENT AUTO 1 % (0-2); EOSINOPHILS ABSOLUTE AUTO 0.17 K/mm3 (0.00-0.68); EOSINOPHILS PERCENT AUTO 3 % (0-6); Hematocrit 43.6 % (37.0-53.0); Hemoglobin 15.4 g/dL (13.5-17.5); IMMATURE GRAN ABSOLUTE AUTO 0.02 K/mm3 (0.00-0.10); IMMATURE GRAN PERCENT AUTO 0 % (0-1); LYMPHOCYTES ABSOLUTE AUTO 1.53 K/mm3 (0.84-5.20); LYMPHOCYTES PERCENT AUTO 29 % (21-46); MONOCYTES ABSOLUTE AUTO 0.61 K/mm3 (0.16-1.47); MONOCYTES PERCENT AUTO 12 % (4-13); Mean Corpuscular HGB 34.2 pg (26.0-34.0); Mean Corpuscular HGB Conc 35.3 g/dL (31.5-36.5); Mean Corpuscular Volume 97 fL (80-100); Mean Platelet Volume 11.4 fL (9.1-12.4); NEUTROPHILS ABSOLUTE AUTO 2.82 K/mm3 (1.96-9.15); NEUTROPHILS PERCENT AUTO 54 % (41-73); Platelet Count 101 K/mm3 (150-400); RDW Coefficient Variation 12.4 % (11.7-14.2); RDW Standard Deviation 44.9 fL (35.1-46.3)
[2024-05-12 14:30] LABS: International Normalized Ratio 1.16; Prothrombin Time Results 12.3 Sec (9.7-11.5)
[2024-05-12 14:34] LABS: Alanine Aminotransfer (ALT/SGP 185 U/L (12-78); Albumin, Blood 3.7 g/dL (3.4-5.0); Albumin/Globulin Ratio 1.1 (0.8-1.8); Alk Phos 134 U/L (50-136); Anion Gap 8 mmol/L (3-11); Aspartate Aminotrans (AST/SGOT 163 U/L (12-37); Bilirubin, Total 1.9 mg/dL (0.1-1.0); Blood Urea Nitrogen 17 mg/dL (8-24); Bun/Creatinine Ratio 21.3 (12.0-20.0); CHOL/HDL RATIO 2.6; CO2, Blood 25 mmol/L (21-32); Calcium, Blood 9.2 mg/dL (8.5-10.1); Chloride, Blood 110 mmol/L (98-108); Cholesterol 127 mg/dL (50-200); Ferritin, Serum 1486 ng/mL (26-388); Globulin, Blood 3.3 g/dL (2.2-4.0); Glomerular Filtration Rate 105 (60-); Glucose, Blood 108 mg/dL (70-99); HDL Cholesterol 49 mg/dL (>39); Iron Serum 271 ug/dL (65-175); LDL/HDL RATIO 1.1; Low Density Lipoprotein Chol 53 mg/dL (0-110); Percent Saturation 86.9 % (20.0-50.0); Potassium, Blood 4.3 mmol/L (3.5-5.5); Sodium, Blood 139 mmol/L (136-145); Total Iron Binding Capacity 312 ug/dL (250-450); Triglycerides 125 mg/dL (30-160); Very Low Density Lipoprot Chol 25 mg/dL (6-32)
[2024-05-13 17:46] LABS: HEPATITIS B SURFACE ANTIGEN Negative (Negative)
[2024-05-13 17:47] LABS: HEPATITIS A ANTIBODIES, TOTAL Positive (Negative)
[2024-05-13 17:48] LABS: HEPATITIS B SURFACE ANTIBODY <3.10 IU/L
[2024-05-13 19:17] LABS: HBV CORE ANTIBODIES,TOTAL Negative (Negative)
[2024-05-13 19:19] LABS: HEPATITIS A ANTIBODY,IGM Negative (Negative)
[2024-05-14 01:20] LABS: HCV QNT BY NAAT (LOG IU/ML) 6.02; HCV QNT BY NAAT INTERP Detected (Not Detected)
[2024-05-14 11:04] LABS: HIV 1,2 COMBO ANTIGEN/ANTIBODY Negative (Negative)
[2024-05-15 15:45] LABS: HCV GENOTYPE BY SEQUENCING 1a or 1b
[2024-05-15 19:10] LABS: ALPHA-2-MACROGLOBUL,FIBROMETER 384 mg/dL (131-293); ALT,FIBROMETER 180 U/L (5-50); AST,FIBROMETER 162 U/L (9-50); CIRRHOMETER PATIENT SCORE 0.84; FIBROMETER INTERPRETATION See Report; FIBROMETER PATIENT SCORE 0.99; FIBROMETER PLATELET COUNT 101 k/uL; FIBROMETER PROTHROMBIN INDEX 75 % (90-120); FIBROSIS METAVIR CLASSIFICAT F4; GGT,FIBROMETER 329 U/L (7-51); INFLAMETER PATIENT SCORE 0.94; UREA NITROGEN,SERUM,FIBROMETER 16 mg/dL (7-20)
== END | disposition home or self-care (01) ==
LOC: LAB SHORT 12:05
PROVIDERS: Nurse Practitioner Family
DX: Z13.6 Encounter for screening for cardiovascular disorders (principal); B19.20 Unspecified viral hepatitis C without hepatic coma
CPT/HCPCS: 36415; 80053; 80061; 82728; 82977; 83540; 83550; 83883; 84450; 84460; 84520; 85025; 85610; 86704; 86708; 86709; 87340; 87389; 87522; 87902

== ENCOUNTER 2024-11-22 10:52 | Day surgery (SDC) | payer OTHER ==
[~2024-11-22] VITALS: Ht 190.5 cm; Wt 111.1 kg
[~2024-11-22 10:52] MED LIST changes: +Lactated Ringer's 1,000 ML IV ONE
[2024-11-22] MEDS ORDERED: MAVYRET 100-401 EAC1 PO (11:30)
[2024-11-22] MEDS ORDERED: Prinivil10 MG PO (11:30)
[2024-11-22] MEDS ORDERED: SPIR25 PO (11:30)
[2024-11-22] MEDS ORDERED: Lactated Ringer's 1,000 ML IV ONE (11:45)
[2024-11-22] MEDS ORDERED: propofoL 50 ML IV ONE (11:50)
--- NOTE | 2024-11-22 13:24 | NUR ---
11/22/24 1324 Rajni Jacobo WHEN PT. GETTING READY TO GO HOME, PT. MENTIONED THAT BOTH OF HIS CALVES HURT & WHEN HE CAME IN THEY DIDN'T HURT. DR. BELL & DR. ROBERTS NOTIFIED, NO ORDERS GIVEN. PER DR. BELL OK TO SEND PT. HOME. PT. ALSO WITH HIGH DIASTOLIC BP NUMBERS. PT. CAME IN WITH HIGH BP & DID TAKE HIS BP MED AT HOME BEFORE COMING IN. DR. ROBERTS NOTIFIED & OK TO SEND PT. HOME.
[2024-11-22 13:26] VITALS: BP 130/97
== END 2024-11-22 12:40 | disposition home or self-care (01) ==
LOC: ORSCSDS 10:52
PROVIDERS: Internal Medicine Gastroenterology
PROC: 0DB58ZX Excision of Esophagus, Via Natural or Artificial Opening Endoscopic, Diagnostic (ICD-10-PCS; principal; 2024-11-22 12:30)
DX: K70.30 Alcoholic cirrhosis of liver without ascites (principal); K20.90 Esophagitis, unspecified without bleeding; B19.20 Unspecified viral hepatitis C without hepatic coma; B15.9 Hepatitis A without hepatic coma; I10 Essential (primary) hypertension; J45.909 Unspecified asthma, uncomplicated; Z86.16 Personal history of COVID-19; Z79.899 Other long term (current) drug therapy; Z87.891 Personal history of nicotine dependence
CPT/HCPCS: 88305; 88312; J2704; J7120